=== PATIENT | male | born 1995 | race Caucasian/White ===

== ENCOUNTER 2020-01-01 11:02 | Emergency (ER) | payer MEDICAID, SELFPAY ==
[2020-01-01 11:02] VITALS: BP 145/78; PULSE 90; RESP 20; TEMP 36.5; O2SAT 99; BMI 20.5
--- NOTE | 2020-01-01 12:00 | HMH.EDUTC ---
[facility] Disposition Clinical Impression: Exposure to COVID-19 virus Disposition: Home, Self-Care Condition on Discharge: Good Instructions: Preventing the Spread of Coronavirus Discharge Instructions Additional Instructions: Drink plenty of fluids. Take tylenol for pain or fever. Follow up with your regular doctor. GO TO THE ER FOR ANY WORSENING SYMPTOMS FOLLOW THE DIRECTIONS ON THE COVID-19 HAND OUT THAT WE GAVE YOU REGARDING SELF-ISOLATION UNTIL YOU KNOW YOUR COVID-19 RESULTS Referrals: Tejas Gilbert MD [Primary Care Provider] - Forms: Work/School Release Time of Disposition: 12:01 Medical Decision Making - Medical Records Medical records reviewed: No: I reviewed the patient's medical records. - Beto Inquiry Pt receiving controlled substance: No Vital Signs: 01/01/20 11:02 01/01/20 12:26 Temperature 97.7 F 97.7 F Temperature Source Oral Pulse Rate 90 Pulse Rate [Left Radial] 90 Respiratory Rate 20 20 Blood Pressure 145/78 H Blood Pressure [Right Arm] 145/78 H Blood Pressure Mean [Right Arm] 100 Blood Pressure Source [Right Arm] Automatic Cuff Blood Pressure Position [Right Arm] Sitting 02 Sat by Pulse Oximetry 99 Oxygen Delivery Method Room Air Room Air - Lab Data Lab Results 01/01/20 11:55: SARS-CoV-2 IgG Ab (Rapid) Negative, SARS-CoV-2 IgM Ab (Rapid) Negative Orders (Tests/Meds): ORDERS Category Date Time Status Covid-19 Nasal PCR ([facility]) Routine Lab 01/01/20 11:55 Received [facility] HPI - General Stated complaint: covid test Time Seen by Provider: 01/01/20 11:10 Mode of Arrival: Ambulatory Source of Information: Patient Limitations: No Limitations Description of Symptoms (Recalled from Triage Doc. by RN): c/o sore throat and runny nose. Was exposed to someone with covid HEENT Symptoms (Recalled from RN notes): Yes Resp Symptoms (Recalled from RN notes): No Skin Symptoms (Recalled from RN notes): No MS Symptoms (Recalled from RN notes): No Functional Status (Recalled from RN notes): wnl - History of Present Illness Provider Complaint: He is here needing a covid test because he was exposed to covid-19. He has a runny nose, but he states he has allergies this time of year. - Related Data Allergies Allergy/AdvReac Type Severity Reaction Status Date / Time No Known Allergies Allergy Verified 01/01/20 11:56 - Worker's Comp Is this a Worker's Comp case?: No [facility] History - Hepatitis A Screen Drug use history?: No High risk sexual behaviors?: No History of sexually transmitted infection?: No Currently employed?: No Childcare worker?: No Do you have indoor plumbing?: Yes Do you have electricity?: Yes Attestation statement:: This patient has been screened for Hepatitis A risk factors. I have reviewed the patient's past medical history: Yes ROS Obtained: Yes All systems reviewed & no additional complaints - Constitutional Constitutional: Reports system reviewed and no additional complaints, except as docu, Denies chills, Denies fever(s) - Eyes Eyes: Reports system reviewed and no additional complaints, except as docu, Denies eye discharge - ENT Ears, Nose, Mouth, and Throat: Reports as per HPI - Cardiovascular Cardiovascular: Reports system reviewed and no additional complaints, except as docu, Denies chest pain - Respiratory Respiratory: Yes system reviewed and no additional complaints, except as docu, No chest congestion, No cough Physical Exam - General General appearance: alert, in no apparent distress - Head Head exam: atraumatic, normocephalic, normal inspection - Eye Eye exam: Present: normal appearance, PERRL, EOMI - ENT ENT exam: Present: normal exam, normal oropharynx, mucous membranes moist, TM's normal bilaterally, normal external ear exam - Neck Neck exam: Present: normal inspection, full ROM, trachea midline. Absent: meningismus, lymphadenopathy - Chest Chest inspection: Present: normal inspec
[2020-01-01 12:26] VITALS: BP 145/78; PULSE 90; RESP 20; TEMP 36.5; O2SAT 99
--- NOTE | 2020-01-01 12:28 | PC.NURSE ---
Verbal order given per Dr. Gilbert pt PCP for antibody lab test for covid
[2020-01-01 13:15] LABS: Coronavirus 19 IgG Antibody Negative (Negative); Coronavirus 19 IgM Antibody Negative (Negative)
== END 2020-01-01 12:32 | disposition home or self-care (01) ==
PROVIDERS: Emergency Provider Nurse Practitioner Family; PCP Emergency Medicine
DX: Z20.828 Contact with and (suspected) exposure to other viral communicable diseases (principal)
CPT/HCPCS: 86328; 99201; U0003

== ENCOUNTER 2020-03-24 19:14 | Emergency (ER) | payer OTHER, SELFPAY ==
[2020-03-24 19:15] VITALS: BP 130/78; PULSE 88; RESP 14; TEMP 36.6; O2SAT 98; BMI 25.0
--- NOTE | 2020-03-24 19:48 | HMH.EDUTC ---
[facility] Disposition Clinical Impression: Exposure to COVID-19 virus, Viral syndrome Disposition: Home, Self-Care Condition on Discharge: Good Instructions: Preventing the Spread of Coronavirus Discharge Instructions Additional Instructions: Drink plenty of fluids. Take tylenol for pain or fever. Take the medications as directed. Follow up with your regular doctor. GO TO THE ER FOR ANY WORSENING SYMPTOMS Prescriptions: Ondansetron [Zofran 4mg ODT] 4 mg PO Q8HP PRN #12 tab.rapdis PRN Reason: Nausea Transmission Status: Received by [facility]/pharmacy #[id number] Referrals: Tejas Gilbert MD [Primary Care Provider] - Time of Disposition: 19:53 Medical Decision Making - Medical Records Medical records reviewed: No: I reviewed the patient's medical records. - Beto Inquiry Pt receiving controlled substance: No Vital Signs: 03/24/20 19:15 03/24/20 19:54 Temperature 97.8 F 97.8 F Temperature Source Oral Pulse Rate 88 Pulse Rate [Right Brachial] 88 Respiratory Rate 14 14 Blood Pressure 130/78 Blood Pressure [Right Arm] 130/78 Blood Pressure Mean [Right Arm] 95 Blood Pressure Source [Right Arm] Automatic Cuff Blood Pressure Position [Right Arm] Sitting 02 Sat by Pulse Oximetry 98 Oxygen Delivery Method Room Air Orders (Tests/Meds): ORDERS Category Date Time Status Covid-19 Nasal PCR ([facility]) Routine Lab 03/24/20 19:25 Received [facility] HPI - General Stated complaint: covid test Time Seen by Provider: 03/24/20 19:48 Mode of Arrival: Ambulatory Source of Information: Patient Limitations: No Limitations Description of Symptoms (Recalled from Triage Doc. by RN): COVID TEST D/T EXPOSURE. C/O HEADACHE HEENT Symptoms (Recalled from RN notes): Yes Resp Symptoms (Recalled from RN notes): No Skin Symptoms (Recalled from RN notes): No MS Symptoms (Recalled from RN notes): No Functional Status (Recalled from RN notes): WNL - History of Present Illness Provider Complaint: He states that he was exposed to covid-19 at his work site. He thinks that the exposure happened several day ago. He has had a headache since yesterday. - Related Data Previous Rx's Medication Instructions Recorded Ondansetron [Zofran 4mg ODT] 4 mg PO Q8HP PRN #12 tab.rapdis 03/24/20 Allergies Allergy/AdvReac Type Severity Reaction Status Date / Time No Known Allergies Allergy Verified 01/01/20 11:56 - Worker's Comp Is this a Worker's Comp case?: No [facility] History - Hepatitis A Screen Drug use history?: No High risk sexual behaviors?: No History of sexually transmitted infection?: No Currently employed?: No Childcare worker?: No Do you have indoor plumbing?: Yes Do you have electricity?: Yes Attestation statement:: This patient has been screened for Hepatitis A risk factors. I have reviewed the patient's past medical history: Yes - Social History Alcohol Intake: never Occupational Status: other ROS Obtained: Yes All systems reviewed & no additional complaints - Constitutional Constitutional: Reports system reviewed and no additional complaints, except as docu - Eyes Eyes: Reports system reviewed and no additional complaints, except as docu - ENT Ears, Nose, Mouth, and Throat: Reports system reviewed and no additional complaints, except as docu - Cardiovascular Cardiovascular: Reports system reviewed and no additional complaints, except as docu - Respiratory Respiratory: Reports system reviewed and no additional complaints, except as docu - Gastrointestinal Gastrointestingal: Reports: system reviewed and no additional complaints, except as docu Physical Exam - General General appearance: alert, in no apparent distress - Head Head exam: atraumatic, normocephalic, normal inspection - Eye Eye exam: Present: normal appearance, PERRL, EOMI - ENT ENT exam: Present: normal exam, normal oropharynx, mucous membranes moist, TM's normal bilaterally, normal external ear
[2020-03-24 19:54] VITALS: BP 130/78; PULSE 88; RESP 14; TEMP 36.6; O2SAT 98
== END 2020-03-24 20:01 | disposition home or self-care (01) ==
PROVIDERS: Emergency Provider Nurse Practitioner Family; PCP Emergency Medicine
DX: Z20.822 Contact with and (suspected) exposure to COVID-19 (principal); B34.9 Viral infection, unspecified
CPT/HCPCS: 99202; G0463; U0003

== ENCOUNTER 2024-04-04 08:16 | Day surgery (SDC) | payer SELFPAY ==
[2024-04-02 14:59] VITALS: BMI 23.5
[2024-04-04] MEDS: LACTATED RINGERS 1000ML 1,000 ML 50 ML IV (09:09)
[2024-04-04 09:11] VITALS: BP 143/87; PULSE 91; RESP 18; TEMP 36.4; O2SAT 100
[2024-04-04 10:09] VITALS: O2SAT 100
--- NOTE | 2024-04-04 10:09 | P.PNANES_ITS ---
[facility] Disclaimer: The information contained in this section may have been updated after the patient was seen, as this information can be updated by other users. Medical History History of gastroesophageal reflux (GERD) Surgical History No significant past surgical history Family History Other No significant family history Social History Smoking Status: Former smoker alcohol intake: never substance use type: denies use current occupational status: employed Travel in the last 8 weeks: None [facility] Anesthesia Checklist Patient Identification Patient Identification: Arm Band and Verbal (Name & ) Structural Data Admitted From: Home Planned Operative Procedure/s: EGD/Colonoscopy Consent for Planned Operative Procedure(s) Verified: Yes Verified Documents: Surgical Consent and History and Physical NPO Status Verified Time NPO: 07:00 Additional verifications Patient : No Anesthesia Reactions: No Cardiovascular Assessment Heart Sounds: S1 & S2 Pulse Rhythm: Irregular Airway Assessment Mallampati Score:: Class II C-Spine Mobility Assessed: Yes TMJ Mobility Assessed: Yes Dentition: Good Dentition Neurological Assessment Level of Consciousness: Awake, Alert, Appropriate and Follows Commands Hx Seizures: No Numbness or tingling in extremities: No Anesthesia Plan Anesthesia Risk discussed: Yes Anesthesia Plan: Verified ASA Class: II Anesthesia Type: MAC
--- NOTE | 2024-04-04 10:13 | EXP.HP ---
History of Present Illness *Admission Date: 04/04/24 *Reason for visit:: Intractable GERD and intermittent bright red blood per rectum with obstipat *History of present illness: Mr. Greene is a 28-year-old gentleman who is here for diagnostic upper endoscopy and colonoscopy. The patient has had chronic GERD and takes omeprazole. If he does not take this, he has more significant reflux symptoms. He also has had a change in bowel habits with incomplete defecation, straining and smaller stools. He has had bright red blood per rectum on the toilet tissue in the past couple of years and developed some mucus in his stool. He has not had a prior colonoscopy. More recently has had more blood and mucus in the stool at least 6 or 7 times the examination is deemed medically necessary for EGD and colonoscopy. The patient has been seen, interviewed and examined prior to the procedure by both myself and the anesthesia provider. [facility] Disclaimer: The information contained in this section may have been updated after the patient was seen, as this information can be updated by other users. Medical History (Updated 04/04/24 @ 10:15 by John Hong II, MD) History of gastroesophageal reflux (GERD) Surgical History No significant past surgical history Family History Other No significant family history Social History (Updated 04/04/24 @ 10:10 by My Alas CRNA) Smoking Status: Former smoker alcohol intake: never substance use type: denies use current occupational status: employed Travel in the last 8 weeks: None Have you lived/traveled outside [place] in past 30 days?: No Contact w/someone who lives/traveled outside US past 30 days?: No Exposure to someone with infectious disease in past 14 days?: No Do you have a fever (greater than 100.4 F or 38 C)?: No Have you tested positive for COVID-19: No Exposed to someone with COVID-19 in past 14 days?: No Do you have a sore throat?: No Do you have a cough?: No Do you have any weakness?: No Do you have any diarrhea?: No Are you experiencing any unusual bleeding?: No Do you have any muscle aches/pain?: No Do you have any abdominal pain?: No Are you experiencing loss of taste or smell?: No Review of Systems Review of Systems Review of systems (narrative): Negative *Cardiovascular Comments: Negative *Gastrointestinal Comments: Negative *Genitourinary Comments: Negative *Musculoskeletal Comments: Negative *Neurologic Comments: Negative Meds Home Medications and Allergies Home Medications ?Medication ?Instructions ?Recorded ?Confirmed ?Type omeprazole 20 mg capsule,delayed 20 mg PO DAILY 01/24/24 04/02/24 History release sertraline 100 mg tablet 100 mg PO DAILY 01/24/24 04/02/24 History New Prescriptions to Start Prescriptions: Allergies Allergy/AdvReac Type Severity Reaction Status Date / Time No Known Allergies Allergy Verified 01/24/24 08:51 Exam Data for Last 24 hours Vital signs and Labs for Last 24 Hours: Temp Pulse Resp BP Pulse Ox O2 Del Method O2 Flow Rate 97.6 F 91 H 18 143/87 H 100 Nasal Cannula 6 04/04/24 09:11 04/04/24 09:11 04/04/24 09:11 04/04/24 09:11 04/04/24 09:11 04/04/24 10:09 04/04/24 10:09 I & O for Last 24 hours: Intake & Output 04/01/24 04/02/24 04/03/24 04/04/24 23:59 23:59 23:59 23:59 Weight 183 lb *Routine HEENT Exam Head: Present normocephalic Eye: Present EOMI and PERRL ENT: Present mucous membranes moist *Routine Neck Exam Neck: Present supple *Routine Respiratory Exam Respiratory: Present CTA bilaterally *Routine Cardiovascular Exam Cardiovascular: Present RRR *Routine Abdominal Exam Abdominal: Present soft and normoactive bowel sounds; Absent tenderness *Routine Rectal Exam Rectal:: deferred *Routine Genitalia Exam Genitalia:: deferred *Routine Extremities Exam Extremities: Absent cyanosis, clubbing or edema *Routine Skin Exam Skin: Present warm; Absent rash *Routine Neurological Exam Neurological: Present alert and oriented X3 Assessment and Plan *Assessment and plan (1) Change in bowel habits: Status: Acute Category: Medical Code(s): R19.4 - Change in bowel habit (2) Increased mucus in stool: Status: Acute Category: Medical Code(s): R19.5 - Other fecal abnormalities (3) Blood in stool: Status: Acute Category: Medical Code(s): K92.1 - Melena (4) GERD (gastroesophageal reflux disease): Status: Acute Category: Medical Code(s): K21.9 - Gastro-esophageal reflux disease without esophagitis Plan A/P: 1. Chronic GERD, change in bowel habits with blood and mucus in the stool is the preprocedural diagnosis. The patient will be anesthetized/sedated using MAC sedation. The patient has been seen and examined. Cardiac and lung assessment prior to the examination is stable. Proceed with planned EGD and colonoscopy
--- NOTE | 2024-04-04 10:16 | HMH.PROCNOTE ---
[facility] Procedure Note Date: 04/04/24 Time: 10:26 Procedure Note:: Upper Endoscopy Procedure Report: Esophagogastroduodenoscopy with cold biopsies and TTS balloon dilation Endoscopost: John Hong II, MD Referring Physician: Tejas Gilbert MD Date of Procedure: April 04, 2024 Equipment: Olympus GIF 190 standard upper endoscope Sedation: MAC sedation Indications: Mr. Greene is a 28-year-old gentleman with chronic GERD for which he takes omeprazole daily. This does control his reflux symptoms. His heartburn and reflux are primarily upright and not supine. He does get some occasional globus without dysphagia. He reports no significant bloating or belching. This is his first upper endoscopy. He has had some change in his bowel habits with bright red blood per rectum and mucus. Procedure: Prior to the procedure, a history and physical exam was performed, and patient's medications and allergies were reviewed. The risks, benefits and alternatives of the sedation and procedure were discussed with the patient. All questions were answered and informed consent was obtained. The patient was brought to the procedure room. Patient identification and proposed procedure were verified by the physician and the nurse. The patient was placed in a left lateral decubitus position and the scope was passed under direct vision. Throughout the procedure, the patient's blood pressure, pulse, and oxygen saturations were monitored continuously. The upper GI endoscopy was accomplished without difficulty. The patient tolerated the procedure well. Findings: The scope was passed directly into the upper esophagus and advanced to the third portion of the duodenum. The post bulbar duodenum and duodenal bulb were normal with normal mucosa and conniventes. The scope was withdrawn through a normal duodenal bulb and pylorus into the stomach. The antrum of the stomach was normal. In the lesser curvature there was some old heme and several scattered AVMs/angiodysplasias. There were no ulcerations or erosions. Cold biopsies were taken from the antrum to rule out gastropathy or H. pylori. Upon retroflexion there was a small sliding 2 cm hiatal hernia. The scope was then withdrawn into the esophagus. There was a serrated Z-line but no evidence of Wolf's esophagus or reflux esophagitis. Biopsies were taken from the GE junction. There was no corrugation referral in. The entire esophagus was dilated to 60 Cambodian/20 mm with a TTS hydrostatic balloon. The remainder of the esophageal mucosa was normal. Impression: 1. Nonerosive GERD with small sliding 2 cm hiatal hernia 2. 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 I will inquire about NSAID use. I will check hemogram and iron studies today. I will proceed with diagnostic colonoscopy.
--- NOTE | 2024-04-04 10:27 | HMH.PROCNOTE ---
[facility] Procedure Note Date: 04/04/24 Time: 10:38 Procedure Note:: Colonoscopy Procedure Report: Colonoscopy with cold snare polypectomy and hemorrhoid band ligation Endoscopist: John Hong II, MD Referring physician: Tejas Gilbert MD Date of Procedure: April 04, 2024 Equipment: Olympus 190 variable stiffness pediatric colonoscope Sedation: MAC sedation Indication: Mr. Greene is a 28-year-old gentleman who is here for diagnostic colonoscopy secondary to blood and mucus in his stools with a change in bowel habits. The patient has noticed some bright red blood on the toilet paper rarely but more recently was seen a little bit more blood with associated mucus. He reports regular bowel function but does state that he has noted incomplete bowel evacuation with some straining and smaller caliber stools. The patient does have some excessive wiping. He reports no abdominal pain or weight loss. He reports no family history of colitis, Crohn's or colon cancer. Procedure: Prior to the procedure, a history and physical exam was performed, and patient's medications and allergies were reviewed. The risks, benefits and alternatives of the sedation and procedure were discussed with the patient. All questions were answered and informed consent was obtained. The patient was brought to the procedure room. Patient identification and proposed procedure were verified by the physician and the nurse. The patient was placed in a left lateral decubitus position and the scope was passed under direct vision. Throughout the procedure, the patient's blood pressure, pulse, and oxygen saturations were monitored continuously. The colonoscopy was accomplished without difficulty. The patient tolerated the procedure well. Findings: On digital rectal examination there was normal rectal tone. There were no external hemorrhoids. The colonoscope was introduced through the anal canal to the rectum and advanced to the cecum. The ileocecal valve and appendiceal orifice were identified. The scope was advanced a short distance into the ileum which appeared grossly normal. The scope was then withdrawn into the colon. There were 2 sessile polyps (descending x 1 (5 mm) and sigmoid x 1 (4 mm)) which were both removed via cold snare polypectomy. The remaining cecum, ascending, transverse, descending, sigmoid and rectum were grossly normal. There were no other mucosal abnormalities identified. Upon retroflexion within the rectum there were grade 2-3 internal hemorrhoids. the hemorrhoids were banded using 3 bands on 3 columns of hemorrhoids with excellent ligation effect. The preparation was excellent throughout with [place] Preparation Score of 9. The cecal time was 13 minutes. Impression: 1. Colonic polyps x 2 (4 and 5 mm) 2. Grade 2-3 internal hemorrhoids status post band ligation x 3 Plan: I will follow-up the polyp histology and suspect adenomatous polyps at a young age. I would recommend surveillance at 5 years. The patient does have some obstipation with associated straining and hemorrhoidal bleeding. He would benefit from long-term and daily use of psyllium Konsyl.
[2024-04-04 10:50] VITALS: BP 93/56; PULSE 64; RESP 16; TEMP 36.3; O2SAT 96
[2024-04-04 11:00] VITALS: BP 100/53; PULSE 61; RESP 18; O2SAT 97
[2024-04-04 11:10] VITALS: BP 100/72; PULSE 78; RESP 18; O2SAT 99
[2024-04-04 11:20] VITALS: BP 101/61; PULSE 68; RESP 18; O2SAT 99
[2024-04-04] MEDS: OXYCODONE 5MG W/APAP 325MG TABLET 1 EACH PO (11:27)
[2024-04-04 11:34] LABS: Basophils % 0.2 % (0.1-2.0); Eosinophils # 0.1 K/mm3 (0.0-0.4); Eosinophils % 0.8 % (0.1-12.0); Hematocrit 43.2 % (42.0-52.0); Hemoglobin 14.6 g/dL (14.1-18.0); Lymphocytes # 1.4 K/mm3 (0.7-4.5); Lymphocytes % 15.8 % (10-50); Mean Corpuscular HGB Conc 33.8 g/dL (31.8-35.4); Mean Corpuscular Hemoglobin 29.4 pg (27.0-31.2); Mean Corpuscular Volume 86.9 fl (80-94); Mean Platelet Volume 10.5 fl (7.4-10.4); Monocytes # 0.6 K/mm3 (0.1-1.0); Monocytes % 6.4 % (1.7-9.3); Neutrophils # 6.9 K/mm3 (1.8-7.8); Neutrophils % 76.6 % (37.0-80.0); Platelet Count 182 K/mm3 (142-424); Red Blood Count 4.97 M/mm3 (4.60-6.20); Red Cell Distribution Width 12.1 % (11.5-17.5)
[2024-04-04 12:21] LABS: Iron 80 ug/dL (49-181)
[2024-04-04 12:30] LABS: Total Iron Binding Capacity 280 ug/dL (261-462)
[2024-04-04 12:58] LABS: Ferritin 121 ng/ml (17.9-464)
== END 2024-04-04 11:50 | disposition home or self-care (01) ==
PROVIDERS: PCP Emergency Medicine; Visit Provider Internal Medicine Gastroenterology
PROC: 0DJ08ZZ Inspection of Upper Intestinal Tract, Via Natural or Artificial Opening Endoscopic (ICD-10-PCS; CPT 45378; principal; 2024-04-04 10:00)
DX: R19.4 Change in bowel habit (principal); K92.1 Melena; K21.9 Gastro-esophageal reflux disease without esophagitis; Z98.890 Other specified postprocedural states; Z87.19 Personal history of other diseases of the digestive system; K44.9 Diaphragmatic hernia without obstruction or gangrene; K31.811 Angiodysplasia of stomach and duodenum with bleeding; D12.4 Benign neoplasm of descending colon; D12.5 Benign neoplasm of sigmoid colon; K64.8 Other hemorrhoids
CPT/HCPCS: 43239; 43249; 45385; 45398; 36415; 82728; 83540; 83550; 85025; C1726; C1889; J2704; J7120